=== PATIENT | male | born 1935 | race Caucasian/White ===

== ENCOUNTER → 2018-07-19 | Outpatient (CLI) | payer MEDICARE ==
[~2018-07-19] MED LIST: AMLO10TA6 PO; ASPI-621 PO; FLAX10004 PO; MAGNESIUM PO; METR59LO TP; UBID100C10 PO
== END | disposition home or self-care (01) ==
LOC: STAR 13:00
PROVIDERS: ATTEND Surgery
DX: Z01.818 Encounter for other preprocedural examination (principal); I51.7 Cardiomegaly
CPT/HCPCS: 93005

== ENCOUNTER 2018-07-29 06:13 | Day surgery (SDC) | payer MEDICARE ==
[~2018-07-29] VITALS: Ht 162.6 cm; Wt 70.0 kg
[2018-07-29] MEDS ORDERED: LACTATED RINGERS 1,000 ML IV SCH (06:44)
[2018-07-29] MEDS ORDERED: FENTANYL PF 100 MCG/2ML ONE (07:06)
[2018-07-29] MEDS ORDERED: MIDAZOLAM 1 MG/ML, 2ML ONE (07:06)
[2018-07-29] MEDS ORDERED: CEFAZOLIN 1,000 MG ONE ×2 (07:07)
[2018-07-29] MEDS ORDERED: EPHEDRINE 50 MG/ML, 1ML ONE (07:07)
[2018-07-29] MEDS ORDERED: DEXAMETHASONE 4 MG/ML, 1ML ONE ×2 (07:07)
[2018-07-29] MEDS ORDERED: PHENYLEPHRINE 10 MG/ML ONE (07:07)
[2018-07-29] MEDS ORDERED: SODIUM CHLORIDE 0.9% PF 10ML ONE (07:14)
[2018-07-29] MEDS ORDERED: ROCURONIUM 10MG/ML,5ML ONE (07:18)
[2018-07-29] MEDS ORDERED: MEPERIDINE/PF 25MG/0.5ML IVPush PRN (08:30)
[2018-07-29] MEDS ORDERED: LABETALOL 5MG/ML, 20ML IV PRN (08:30)
[2018-07-29] MEDS ORDERED: hydrALAzine 20 MG/ML, 1ML IV PRN (08:30)
[2018-07-29] MEDS ORDERED: METOPROLOL 1 MG/ML, 5ML IV PRN (08:30)
[2018-07-29] MEDS ORDERED: MIDAZOLAM 1 MG/ML, 2ML IV PRN (08:30)
[2018-07-29] MEDS ORDERED: FENTANYL PF 100 MCG/2ML IV PRN (08:30)
[2018-07-29] MEDS ORDERED: PROCHLORPERAZINE 5 MG/ML, 2ML IV PRN (08:30)
[2018-07-29] MEDS ORDERED: OXYcodone 5 MG/5 ML ORAL.SOL UDC PO PRN (08:30)
[2018-07-29] MEDS ORDERED: ACETAMINOPHEN 325 MG TABLET PO PRN (08:30)
[2018-07-29] MEDS ORDERED: EPHEDRINE 50 MG/ML, 1ML IVPush PRN (08:30)
[2018-07-29] MEDS ORDERED: MORPHINE SULFATE 4 MG/ML, 1ML IVPush PRN (08:30)
[2018-07-29] MEDS ORDERED: DIPHENHYDRAMINE 50 MG/ML, 1ML IVPush PRN (08:30)
[2018-07-29] MEDS ORDERED: ALBUTEROL SULFATE 2.5 MG/3 ML NPPB PRN (08:30)
[2018-07-29] MEDS ORDERED: HYDROmorphone 1 MG/ML, 1ML IV PRN (08:30)
[2018-07-29] MEDS ORDERED: LORazepam 2 MG/ML, 1ML IVPush PRN (08:30)
[2018-07-29 08:54] LABS: 10MIN %DROP IOPTH 93 %; 5MIN %DROP IOPTH 92 %; IOPTH BASELINE 878 pg/mL
[2018-07-29 08:55] LABS: SAMPLE 5 %DROP IOPTH 94 %
[2018-07-29] MEDS ORDERED: OXYcodone 5 MG/5 ML ORAL.SOL UDC ONE (09:15)
[2018-07-29] MEDS ORDERED: ACETAMINOPHEN 650 MG/20.3 ML UDC ONE (09:15)
[2018-07-29] MEDS ORDERED: NEOSTIGMINE 1 MG/ML, 10ML ONE (16:09)
[2018-07-29] MEDS ORDERED: SUCCINYLCHOLINE 20 MG/ML, 10ML ONE (16:09)
[2018-07-29] MEDS ORDERED: GLYCOPYRROLATE 0.2MG/1ML, 5ML ONE (16:09)
[2018-07-29] MEDS ORDERED: PROPOFOL 10 MG/ML, 20ML ONE (16:09)
== END 2018-07-29 12:25 | disposition home or self-care (01) ==
LOC: OUT 06:13
PROVIDERS: ATTEND Surgery
DX: E03.9 Hypothyroidism, unspecified (principal); K21.9 Gastro-esophageal reflux disease without esophagitis; I10 Essential (primary) hypertension; E78.00 Pure hypercholesterolemia, unspecified; Z90.49 Acquired absence of other specified parts of digestive tract; Z98.890 Other specified postprocedural states; Z72.89 Other problems related to lifestyle
CPT/HCPCS: 36415; 60500; 83970; 88305; C1729; C1760; J0330; J0690; J1100; J2250; J2370; J2704; J2710; J3010; J3490; J7120